=== PATIENT | male | born 1990 | race Caucasian/White ===

== ENCOUNTER 2019-08-29 17:36 | Emergency (ER) | payer MEDICAID ==
--- NOTE | 2019-08-29 18:14 | EDM.PDOC ---
ED HPI GENERAL MEDICAL PROBLEM - General Chief Complaint: Respiratory Problem Stated Complaint: CHEST CONGESTION Time Seen by Provider: 08/29/19 18:14 Source of Information: Reports: Patient History Limitations: Reports: No Limitations - History of Present Illness INITIAL COMMENTS - FREE TEXT/NARRATIVE: HISTORY AND PHYSICAL: History of present illness: Patient is a 29-year-old male who presents to the emergency room with complaints of cough, subjective fever and body aches x1 week. Patient denies any headache, change in vision, syncope or near syncope. Denies any chest pain, back pain, shortness of breath. Denies any abdominal pain, nausea, vomiting, diarrhea, constipation or dysuria. Patient has been eating and drinking appropriately. Patient does have a history of asthma, no smoking history. No recent travel. Review of systems: As per history of present illness and below otherwise all systems reviewed and negative. Past medical history: As per history of present illness and as reviewed below otherwise noncontributory. Surgical history: As per history of present illness and as reviewed below otherwise noncontributory. Social history: See social history for further information Family history: As per history of present illness and as reviewed below otherwise noncontributory. Physical exam: General: Well developed and well nourished 29-year-old male. Alert and oriented. Nontoxic-appearing and in no acute distress. HEENT: Atraumatic, normocephalic, pupils equal and reactive bilaterally, negative for conjunctival pallor or scleral icterus, mucous membranes moist, TMs normal bilaterally, throat clear, neck supple, nontender, trachea midline. No drooling or trismus noted. No meningeal signs. No hot potato voice noted. Lungs: Clear to auscultation, breath sounds equal bilaterally, chest nontender. Productive cough noted. Heart: S1S2, regular rate and rhythm without overt murmur Abdomen: Soft, nondistended, nontender. Negative for masses or hepatosplenomegaly. Negative for costovertebral tenderness. Skin: Intact, warm, dry. No lesions or rashes noted. Extremities: Atraumatic, moves all extremities per self without difficulty or deficits, negative for cords or calf pain. Neurovascular unremarkable. Neuro: Awake, alert, oriented. Cranial nerves II through XII unremarkable. Cerebellum unremarkable. Motor and sensory unremarkable throughout. Exam nonfocal. Notes: Negative influenza and chest x-ray. Due to patient's history of asthma and longevity of symptoms will treat with a Z-Anthony. Supportive care measures were reviewed and discussed. Voices understanding and is agreeable to plan of care. Denies any further questions or concerns at this time. Diagnostics: Influenza, chest x-ray Therapeutics: None Prescription: Tessalon Fozia Zpak Impression: Bronchitis Plan: 1. Take the medications as directed. Please use Tylenol and/or Ibuprofen as needed for pain and fever management. 2. Get plenty of Rest. Encourage fluids to prevent dehydration. 3. Please follow up with your primary care provider. Return to the ED as needed as discussed. Definitive disposition and diagnosis as appropriate pending reevaluation and review of above. headache Pain Score (Numeric/FACES): 4 - Related Data Allergies Allergy/AdvReac Type Severity Reaction Status Date / Time No Known Allergies Allergy Verified 08/29/19 18:16 Home Meds: Home Meds Albuterol Sulfate [Albuterol Sulfate Hfa] 2 puff INH Q4HR PRN 08/29/19 [History] Azithromycin [Zithromax] 1 dose PO DAILY 5 Days #6 tab 08/29/19 [Rx] Benzonatate [Tessalon Perle] 100 mg PO TID PRN #20 capsule 08/29/19 [Rx] FLUoxetine [PROzac] 20 mg PO DAILY 08/29/19 [History] Mometasone Furoate [Asmanex 220 MCG] 1 puff INH DAILY 08/29/19 [History] ED ROS GENERAL - Review of Systems Review Of Systems: Comprehensive ROS is negative, except as noted in HPI. ED EXAM, GENERAL - Physical Exam Exam: See Below (See dictation) Course - Vital Signs Last Recorded V/S: Last Vital Signs Temp 97.7 F 08/29/19 18:12 Pulse 88 08/29/19 18:12 Resp 19 08/29/19 18:12 BP 142/95 H 08/29/19 18:12 Pulse Ox 96 08/29/19 18:12 - Orders/Labs/Meds Orders: Active Orders 24 hr Category Date Time Status Chest 2V [CR] Stat Exams 08/29/19 18:18 Ordered INFLUENZA A+B AG SCREEN [RM] Stat Lab 08/29/19 18:26 Ordered Departure - Departure Time of Disposition: 18:52 Disposition: Home, Self-Care 01 Clinical Impression: Bronchitis - Discharge Information Prescriptions: Azithromycin [Zithromax] 1 dose PO DAILY 5 Days #6 tab Benzonatate [Tessalon Perle] 100 mg PO TID PRN #20 capsule PRN Reason: Cough Instructions: Upper Respiratory Infection, Adult, [id number] Referrals: Chris Gonzalez MD [Primary Care Provider] - Forms: ED Department Discharge Additional Instructions: The following information is given to patients seen in the emergency department who are being discharged to home. This information is to outline your options for follow-up care. We provide all patients seen in our emergency department with a follow-up referral. The need for follow-up, as well as the timing and circumstances, are variable depending upon the specifics of your emergency department visit. If you don't have a primary care physician on staff, we will provide you with a referral. We always advise you to contact your personal physician following an emergency department visit to inform them of the circumstance of the visit and for follow-up with them and/or the need for any referrals to a consulting specialist. The emergency department will also refer you to a specialist when appropriate. This referral assures that you have the opportunity for follow-up care with a specialist. All of these measure are taken in an effort to provide you with optimal care, which includes your follow-up. Under all circumstances we always encourage you to contact your private physician who remains a resource for coordinating your care. When calling for follow-up care, please make the office aware that this follow-up is from your recent emergency room visit. If for any reason you are refused follow-up, please contact the [facility] Emergency Department at and asked to speak to the emergency department charge nurse. [facility] [address] [place] [address] [id number] [address] [address] 1. Take the medications as directed. Please use Tylenol and/or Ibuprofen as needed for pain and fever management. 2. Get plenty of Rest. Encourage fluids to prevent dehydration. 3. Please follow up with your primary care provider. Return to the ED as needed as discussed. Sepsis Event Note - Focused Exam Vital Signs: Vital Signs Temp Pulse Resp BP Pulse Ox 08/29/19 18:12 97.7 F 88 19 142/95 H 96 Date Exam was Performed: 08/29/19 Time Exam was Performed: 18:51 - My Orders Last 24 Hours: My Active Orders 08/29/19 18:18 Chest 2V [CR] Stat 08/29/19 18:26 INFLUENZA A+B AG SCREEN [RM] Stat - Assessment/Plan Last 24 Hours: My Active Orders 08/29/19 18:18 Chest 2V [CR] Stat 08/29/19 18:26 INFLUENZA A+B AG SCREEN [RM] Stat
--- NOTE | 2019-08-29 18:59 | CR ---
Chest: 2 views of the chest were obtained. Comparison: No previous chest x-ray. Heart size and mediastinum are within normal limits. Prominent density over the left hilum is seen. On lateral view there is focal parenchymal density anteriorly within the left upper lung. Lungs otherwise are clear. Bony structures are unremarkable. Impression: 1. Density anteriorly on the lateral view which causes prominence of the left hilum. Contrast enhanced chest CT recommended to further evaluate. 2. No additional abnormality is seen on 2 view chest x-ray. Diagnostic code #9 This report was dictated in MDT
== END 2019-08-29 19:00 | disposition home or self-care (01) ==
LOC: MW.ED 17:36
DX: J40 Bronchitis, not specified as acute or chronic (principal); Z79.899 Other long term (current) drug therapy
CPT/HCPCS: 71046; 71046-26; 87804; 99282; 99283-25